=== PATIENT | female | born 1995 | race Caucasian/White ===

== ENCOUNTER 2022-05-10 06:54 | Emergency (ER) | payer OTHER ==
[~2022-05-10] VITALS: Ht 157.5 cm; Wt 70.5 kg
[2022-05-10 07:02] VITALS: BP 121/77; TEMP 98
[2022-05-10 07:47] VITALS: PULSE 88
[2022-05-10] MEDS ORDERED: ZYRTEC 10MG10 MG PO (07:54)
== END 2022-05-10 08:05 | disposition home or self-care (01) ==
LOC: COL.ER 06:54
DX: L50.8 Other urticaria (principal); Z28.310 Unvaccinated for COVID-19

== ENCOUNTER 2022-05-14 19:00 | Emergency (ER) | payer OTHER ==
[~2022-05-14] VITALS: Ht 157.5 cm; Wt 70.5 kg
[~2022-05-14 19:00] MED LIST: ZYRTEC 10MG10 MG PO
[2022-05-14] MEDS ORDERED: EPIPEN 2-PAK1 MG/ML IM (19:58)
[2022-05-14 20:25] VITALS: BP 122/75; PULSE 83; TEMP 98.4
== END 2022-05-14 20:25 | disposition home or self-care (01) ==
LOC: COL.ER 19:00
DX: L50.9 Urticaria, unspecified (principal); Z28.310 Unvaccinated for COVID-19
CPT/HCPCS: J8540